=== PATIENT | female | born 1995 | race Two or more races ===

== ENCOUNTER 2024-07-23 22:56 | Emergency (ER) | payer OTHER ==
[~2024-07-23] VITALS: Ht 165.1 cm; Wt 108.9 kg
[2024-07-24 00:15] LABS: HEMATOCRIT 34.7 % (36.0-45.00); HEMOGLOBIN 10.9 g/dL (12.0-15.00); MEAN CELL VOLUME 74.4 fL (80.00-100.00); MEAN CORPUSCULAR HEMOGLOBIN 23.4 pg (27.00-32.0); MEAN CORPUSCULAR HGB CONC 31.5 g/dl (32.0-36.0); PLATELET COUNT 206 K/uL (150-450); RED BLOOD COUNT 4.67 M/uL (4.00-6.00); RED CELL DISTRIBUTION WIDTH 21.5 % (11.5-14.5)
[2024-07-24 00:19] LABS: PH,URINE 5.5 (5.0-8.0); URINE APPEARANCE Clear; URINE BILIRRUBIN Negative (NEGATIVE); URINE BLOOD Large; URINE COLOR Yellow; URINE GLUCOSE Negative (NEGATIVE); URINE KETONE Trace (NEGATIVE); URINE LEUKOCYTE Trace; URINE NITRATE Negative; URINE PROTEIN 30 (NEGATIVE)
[2024-07-24 00:23] LABS: URINE BACTERIA 1374.6 uL (0.0-1933); URINE EPITHELIAL CELLS 23.4 uL (0.0-38.8); URINE RBC 121.8 uL (0.0-20.8); URINE WBC 93.2 uL (0.0-23.2)
== END 2024-07-24 03:36 ==
LOC: ER 22:58
PROVIDERS: General Practice
DX: O20.8 Other hemorrhage in early pregnancy (principal); Z3A.01 Less than 8 weeks gestation of pregnancy